=== PATIENT | female | born 1960 | race Caucasian/White ===

== ENCOUNTER 2020-07-21 05:48 | Day surgery (SDC) | payer OTHER ==
[2020-07-14 14:44] LABS: EOSINOPHILS # (AUTO) 0.2 X10'3 (0-0.9); NEUTROPHILS # (AUTO) 4.9 X10'3 (1.8-7.7)
[2020-07-14 14:47] LABS: BASOPHILS # (AUTO) 0.1 X10'3 (0-0.2); BASOPHILS % (AUTO) 1.1 % (0-1); EOSINOPHILS % (AUTO) 3.1 % (0-6); LYMPHOCYTES # (AUTO) 1.8 X10'3 (1.1-4.8); LYMPHOCYTES % (AUTO) 23.6 % (21-51); MEAN CORPUSCULAR HEMOGLOBIN 30.8 PG (27.0-31.0); MEAN CORPUSCULAR HGB CONC 34.3 g/dL (33.0-36.5); MEAN CORPUSCULAR VOLUME 89.8 FL (78-98); MEAN PLATELET VOLUME 7.6 FL (7.4-10.4); MONOCYTES # (AUTO) 0.6 X10'3 (0-0.9); MONOCYTES % (AUTO) 8.4 % (2-12); NEUTROPHILS % (AUTO) 63.8 % (42-75); PRE OP PLATELET COUNT 238 X10'3 (140-440); RED BLOOD COUNT 4.23 X10'6 (4.20-5.60); RED CELL DISTRIBUTION WIDTH 13.7 % (11.5-14.5)
[2020-07-14 15:14] LABS: ALBUMIN 3.4 G/DL (3.4-5.0); ALKALINE PHOSPHATASE 129 IU/L (46-116); BLOOD UREA NITROGEN 18 MG/DL (7-18); BUN/CREATININE RATIO 17.6 (6.6-38.0); CALCIUM 8.9 MG/DL (8.5-10.1); CHLORIDE 106 MMOL/L (99-107); CREATININE 1.02 MG/DL (0.40-0.90); PRE OP ALT 21 U/L (30-65); PRE OP ANION GAP 8 (8-16); PRE OP AST 20 U/L (10-37); PRE OP BILIRUB, TOTAL 0.2 MG/DL (0.0-1.0); PRE OP GLUCOSE 101 MG/DL (70-104); PRE OP SODIUM 141 MMOL/L (135-145); TOTAL CARBON DIOXIDE 27.4 MMOL/L (24-32); TOTAL PROTEIN 6.9 G/DL (6.4-8.2); eGFR 55 ML/MIN
[2020-07-21] VITALS (7 sets, daily range): BP systolic 138–162; BP diastolic 70–92
[~2020-07-21] VITALS: Ht 167.6 cm; Wt 95.8 kg
[~2020-07-21 05:48] MED LIST: ATOR40TA7 PO; CITA40TA22 PO; LOSA1TAB3 PO; OMEP20CA15 PO; ceFAZolin 2gm in dextrose, iso 50 ML IV ONE; famotidine 20mg tablet PO ONE; ringers solution, lacted 1,000 ML IV SCH
[2020-07-21] MEDS ORDERED: BUPIVAcaine/PF 2.5mg/ml (0.25%) 10ml vial ONE (06:40)
[2020-07-21] MEDS ORDERED: LIDOcaine 1% (10mg/ml) 2ml vial ONE (07:01)
[2020-07-21] MEDS ORDERED: sevoflurane 250ml liquid IH ONE (07:43)
[2020-07-21] MEDS ORDERED: midazolam 1 mg/ML 2ml injection ONE (07:46)
[2020-07-21] MEDS ORDERED: fentaNYL/PF 50MCG/1 ML 2ML syringe ONE (07:46)
[2020-07-21] MEDS ORDERED: LIDOcaine 0.5% (5mg/ml) 50ml vial ONE (07:47)
[2020-07-21] MEDS ORDERED: propofol inj 20 ML IV ONE (08:04)
--- NOTE | 2020-07-21 08:11 | NUR ---
Received from OR via , accompanied by Anesthesiologist DR MANDUJANO and report given by Anesthesiolgist. AWAKENS TO VOICE. VITALS STABLE. DRESSING DI. VANESSA PAIN. FINGERS WAEM AND PINK.
[2020-07-21] MEDS ORDERED: morphine 2 MG/ML inj. syringe IV PRN (08:30)
[2020-07-21] MEDS ORDERED: meperidine/PF 25mg/ml syringe IV PRN ×3 (08:30)
[2020-07-21] MEDS ORDERED: morphine 4 MG/ML inj SYRINge IV PRN (08:30)
[2020-07-21] MEDS ORDERED: proCHLORperazine 10 MG/2 ml inj IV PRN (08:30)
[2020-07-21] MEDS ORDERED: ondansetron/PF 4mg/2ml inj IV PRN (08:30)
[2020-07-21] MEDS ORDERED: ringers solution, lacted 1,000 ML IV SCH (08:30)
--- NOTE | 2020-07-21 09:11 | NUR ---
AWAKE AND ORIENTED. VITALS STABLE. DRESSING DI. VANESSA PAIN. HOME WITH HER SPOUSE AT THIS TIME.
== END 2020-07-21 09:11 | disposition home or self-care (01) ==
LOC: PAS 05:48
PROVIDERS: ATTEND Orthopaedic Surgery Hand Surgery
DX: G56.01 Carpal tunnel syndrome, right upper limb (principal); I10 Essential (primary) hypertension; G89.29 Other chronic pain; F32.9 Major depressive disorder, single episode, unspecified; E66.9 Obesity, unspecified; Z68.33 Body mass index [BMI] 33.0-33.9, adult; Z20.822 Contact with and (suspected) exposure to COVID-19; Z90.710 Acquired absence of both cervix and uterus; Z90.49 Acquired absence of other specified parts of digestive tract; Z98.890 Other specified postprocedural states; Z79.899 Other long term (current) drug therapy; Z72.89 Other problems related to lifestyle
CPT/HCPCS: 29848; 36415; 80053; 82948; 85025; 87635; 93005; J2001; J2250; J2704; J3010; J3490; A4215; A7000; J7120